=== PATIENT | female | born 1960 | race Caucasian/White ===

== ENCOUNTER → 2020-08-10 | Day surgery (SDC) | payer OTHER ==
[~2020-08-10] VITALS: Ht 167.6 cm; Wt 147.0 kg
[~2020-08-10] MED LIST: AMLO-186 PO; DULO60CA6 PO; IV RINGERS,LACTATED 1000ML 1,000 ML IV SCH; LEVO75TA5 PO; LIDOCAINE 2% PF 5 ML VIAL. ONE; OLME40TA12 PO; PANT20TA2 PO; PROPOFOL 10 MG/ML (20ML) VIAL. IV ONE; TRAZ-123 PO
[2020-08-10 09:32] VITALS: BP 131/82
[2020-08-10 10:41] VITALS: BP 138/77
--- NOTE | 2020-08-11 17:11 | PATHOLOGY ---
[facility] Accession Number: [id number] . 01 Material submitted: . PART A: small bowel - SMALL BOWEL BIOPSY PART B: stomach - GASTRIC ANTRUM BODY BIOPSY PART C: esophagus - DISTAL ESOPHAGUS BIOPSY. Modifiers: distal PART D: esophagus - MID ESOPHAGUS BIOPSY. Modifiers: mid . 01 Clinical history: . GERD,DYSPHAGIA,COLON SCREEN EGD . 02 Diagnosis: A. Small bowel biopsies: - No significant pathologic abnormalities. . B. Gastric biopsies, gastric antrum and gastric body: - Chronic gastritis, mild. . C. Esophageal biopsies, distal esophagus: - Segments of gastric mucosa showing congestion and mild chronic inflammation. . D. Esophageal biopsies, middle esophagus: - Segments of squamous esophageal mucosa. . (CHASM:elena; 08/11/2020) [facility] 08/11/2020 1343 Local . 02 Comment: Sections of the small bowel biopsy reveal segments of duodenal mucosa. Where best oriented, the mucosal villi show no sprue-like changes or significant inflammatory changes. . Sections of the gastric biopsy reveal gastric antral and antral/body transition mucosa showing congestion and mild chronic inflammation. A properly controlled immunoperoxidase stain for Helicobacter is negative for Helicobacter organisms. . Sections of the distal esophageal biopsy reveal segments of gastric mucosa showing congestion and mild chronic inflammation. There is no squamous esophageal mucosa. There is no evidence of Martinez's change, dysplasia, or malignancy. . Sections of the middle esophagus biopsy reveal segments of focally mildly hyperplastic squamous esophageal mucosa. There is no evidence of Martinez's change, dysplasia, or malignancy. . (CHASM:elena; 08/11/2020) . Special stain performed: Immunoperoxidase stain for Helicobacter on B1 . Electronically signed: . Sean Mairno MD, Pathologist NPI- [id number] . 01 Gross description: . A. The specimen is received in formalin, labeled "Ray, Laura, small bowel biopsy" received as multiple fragments of soft hall tissue measuring up to 0.3 cm. Entirely submitted in A1. . B. The specimen is received in formalin, labeled "Ray, Laura, gastric antrum body biopsy" received as 2 fragments of soft hall tissue measuring up to 0.6 cm. Entirely submitted in B1. . C. The specimen is received in formalin, labeled "Ray, Laura, distal esophagus biopsy" received as 2 fragments of soft hall tissue measuring up to 0.2 cm. Entirely submitted in C1. . D. The specimen is received in formalin, labeled "Ray, Laura, mid esophagus biopsy" received as 2 fragments of soft hall tissue measuring up to 0.2 cm. Entirely submitted in D1.([facility]; 08/10/2020) . KONSTANTIN/KONSTANTIN 08/11/2020 1336 Local . 02 Pathologist provided ICD-10: K29.50, K20.90, K21.00, R13.10, Z12.11 . 02 CPT . 758515, 392729, 985046, [id number], [id number] Specimen Comment: A courtesy copy of this report has been sent to [phone], [phone] Specimen Comment: 1990 Specimen Comment: Report sent to / DR DALTON [facility]: [facility] [address], [place] [id number] MD Chon Roman MD Phone: [phone] [facility]formed [facility]: [facility] [address], [place] [id number] MD Sean Marino MD Phone: [phone]
== END | disposition home or self-care (01) ==
LOC: SURG 08:57
PROVIDERS: ATTEND Internal Medicine Gastroenterology
DX: Z12.11 Encounter for screening for malignant neoplasm of colon (principal); R13.10 Dysphagia, unspecified; K31.89 Other diseases of stomach and duodenum; K63.89 Other specified diseases of intestine; K64.0 First degree hemorrhoids; K29.50 Unspecified chronic gastritis without bleeding; K21.00 Gastro-esophageal reflux disease with esophagitis, without bleeding; I10 Essential (primary) hypertension; E78.00 Pure hypercholesterolemia, unspecified; M19.90 Unspecified osteoarthritis, unspecified site; E03.9 Hypothyroidism, unspecified; F41.9 Anxiety disorder, unspecified; F32.9 Major depressive disorder, single episode, unspecified; Z87.440 Personal history of urinary (tract) infections; Z20.822 Contact with and (suspected) exposure to COVID-19; Z79.899 Other long term (current) drug therapy; Z98.890 Other specified postprocedural states
CPT/HCPCS: 43239; 43450; 45378; 87426; 88305; 88342; J2704